=== PATIENT | female | born 1995 | race Caucasian/White ===

== ENCOUNTER 2021-11-20 00:31 | Emergency (ER) | payer OTHER, SELFPAY ==
[2021-11-20 00:44] VITALS: BP 124/78; PULSE 96; RESP 16; TEMP 36.4; O2SAT 100; BMI 27.3
--- NOTE | 2021-11-20 00:55 | W.ED.DIZZY ---
HPI - Dizziness General: Chief Complaint: Dizziness Stated Complaint: Dizzy\SOB\Chest Burning Time Seen by Provider: 11/20/21 00:55 History of Present Illness: HPI Narrative: 26-year-old female comes in today with complaints of nausea and dizziness. Patient reports that she drank a large dose of Delsym and went to bed tonight. Patient reported that a couple hours after going to bed she woke up and went to the bathroom and felt like she was going to pass out or throw up. Patient did report that she drank about half the bottle of Delsym. Patient states she did not drink the medicine to get high or try to harm herself. At this time patient feels better except for some dizziness. Review of Systems General: Reports: 10 or more systems reviewed and unremarkable except in HPI and below Neuro: Reports: dizziness Physical Exam Const: COMMON NORMALS: alert HENMT: COMMON NORMALS: normocephalic HEAD & SCALP: normocephalic Neck/C-Spine: COMMON NORMALS: full ROM Chest: CHEST: Yes other (Mild chest wall tenderness to the left third sternal costal border) Resp: COMMON NORMALS: normal respiratory effort and clear to auscultation bilaterally AUSCULTATION: clear to auscultation bilaterally : COMMON NORMALS: Yes no CVA tenderness BLADDER/KIDNEY EXAM: Yes no CVA tenderness Back/Pelvis: COMMON NORMALS: no CVA tenderness Extremity: COMMON NORMALS: normal to inspection Neuro: SENSORIUM/ORIENTATION: Yes alert Psych: COMMON NORMALS: cooperative Course Vital Signs: Vital signs: Vital Signs Temperature 97.6 F 11/20/21 00:44 Pulse Rate 96 11/20/21 00:44 Respiratory Rate 16 11/20/21 00:44 Blood Pressure 124/78 11/20/21 00:44 Pulse Oximetry 100 11/20/21 00:44 MDM - Dizziness Medical Decision Making Patient came in tonight for concerns of nausea and feeling like she was going to pass out. With discussion with patient it come to realize patient had taken a large dose of Delsym, pvlr-kid-ksozzal cough medicine, patient does report feeling better since arriving to the ER but continues to have some dizziness. Differential diagnosis includes arrhythmia, BPV, vasovagal syndrome, adverse reaction to drug. EKG was normal. I believe patient is taking a large dose of dextromethorphan which is caused her symptoms. I discussed with patient the need to take the medication only as directed. Patient reported understanding agreed to plan. EKG Data EKG 1: EKG interpretation date: 11/20/21 EKG interpretation time: 01:43 Interpretation: EKG shows a sinus rhythm with a regular rate at [address] elevation or ectopy is noted. No prior exam was available for comparison. Discharge Plan Discharge Patient Disposition: Home Clinical Impression: Adverse reaction to drug Qualifiers: Encounter type: initial encounter Qualified Code(s): T50.905A - Adverse effect of unspecified drugs, medicaments and biological substances, initial encounter Condition: Stable Discharge Orders: Discharge ED (Routine); Ordered 11/20/21 Ordered By: Jerome Winchester Discharge Diet: Usual diet Discharge Activity: Increase activity as tolerated Activity Restrictions/Additional Instructions: Delsym is a opiate type medication and in large doses can cause dizziness, nausea, and multitude of other symptoms. Go home and rest. Drink plenty of fluids. Follow-up with primary care as needed. Return to the ER for new concerns. Coding Level of Care Code ED Tool Room Attendant for Sergio Alvarez Exam Problem Focused
--- NOTE | 2021-11-20 01:25 | ECG_ITS ---
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 Measurements Intervals [place] Rate: 77 P: 28 CO: 124 QRS: 76 QRSD: 94 T: 10 QT: 367 QTc: 418 Interpretive Statements SINUS RHYTHM No previous ECG available for comparison Electronically Signed On 11-20-2021 16:01:11 TRAVEL JOURNALIST by Alo Clarke M.D. [id number]
[2021-11-20 01:51] VITALS: BP 124/78; PULSE 96; RESP 16; TEMP 36.4; O2SAT 100
[2021-11-20 02:12] VITALS: BP 124/78; PULSE 96; RESP 16; TEMP 36.4; O2SAT 100
== END 2021-11-20 02:12 | disposition home or self-care (01) ==
PROVIDERS: Emergency Provider Nurse Practitioner Family
DX: T88.7XXA Unspecified adverse effect of drug or medicament, initial encounter (principal); T48.3X5A Adverse effect of antitussives, initial encounter
CPT/HCPCS: 93005; 99282

== ENCOUNTER 2022-07-10 11:38 | Outpatient (CLI) | payer OTHER, SELFPAY | END 2022-07-10 11:39 | disposition home or self-care (01) | LOC: LAB 11:41 | PROVIDERS: Visit Provider Family Medicine | DX: Z36.89 Encounter for other specified antenatal screening (principal); Z3A.01 Less than 8 weeks gestation of pregnancy | CPT/HCPCS: 84702 ==

== ENCOUNTER 2022-08-13 13:59 | Outpatient (CLI) | payer OTHER, SELFPAY ==
--- NOTE | 2022-08-13 | USCV_ITS ---
Mariangel Jaeger Age: 26 Gender: F : 1995 Exam Date: 08/13/2022 14:58 Ordering Phys: Jose Martin Agudelo MD Technologist: Marcio Mcrae Exam Location: [facility] – [place] Indication: Pulmonic valve disorder BP: 120 / 82 HR: 79 Rhythm: Sinus Technical Quality: Adequate MEASUREMENTS (Male / Female) Normal Values 2D ECHO LV Diastolic Diameter PLAX 4.1 cm 4.2 - 5.9 / 3.9 - 5.3 cm LV Systolic Diameter PLAX 2.4 cm IVS Diastolic Thickness 0.6 cm 0.6 - 1.0 / 0.6 - 0.9 cm IVS Systolic Thickness 0.8 cm LVPW Diastolic Thickness 0.8 cm 0.6 - 1.0 / 0.6 - 0.9 cm LVPW Systolic Thickness 1.2 cm LVOT Diameter 2.0 cm LV Ejection Fraction 2D Teich 73.0 % LV Ejection Fraction MOD 2C 72.1 % LV Ejection Fraction 2C AL 73.5 % LA Diameter 3.1 cm LA Width 3.1 cm LA Height 3.5 cm RA Width 2.7 cm RA Height 4.0 cm Aorta at Sinotubular Diameter 1.7 cm IVC Diameter 1.2 cm M-MODE Aortic Annulus Diameter 2.1 cm LA Ao Ratio MM 1.5 MV E Point Septal Separation 0.3 cm DOPPLER AV Peak Velocity 129.7 cm/s LVOT Peak Velocity 131.0 cm/s AV Area Cont Eq vti 2.8 cm squared AV Area Cont Eq pk 3.2 cm squared MV Peak Velocity 139.0 cm/s MV Area PHT 7.1 cm squared Mitral E to A Ratio 1.6 MV E' Velocity 60.5 cm/s Mitral E to MV E' Ratio 4.8 Mitral E to LV E' Lateral Ratio 4.2 Mitral E to LV E' Septal Ratio 5.5 TR Peak Velocity 220.3 cm/s TR Peak Gradient 19.4 mmHg TR Mean Velocity 157.8 cm/s TR Mean Gradient 10.4 mmHg TR Velocity Time Integral 36.8 cm Right Atrial Pressure 3.0 mmHg Pulmonary Artery Systolic Pressu 22.4 mmHg PV Peak Velocity 111.0 cm/s RV Acceleration Time 0.2 s RV Ejection Time 0.3 s RV AcT/ET 0.5 FINDINGS Left Ventricle Normal left ventricular size and systolic function, EF 66 %. No regional wall motion abnormalities. Right Ventricle Normal right ventricular size and systolic function. Right Atrium The right atrium is normal in size. Left Atrium The left atrium is normal in size. Mitral Valve No gross abnormalities noted Aortic Valve No gross abnormalities noted Tricuspid Valve Trace to mild tricuspid valve regurgitation. Estimated pulmonary artery peak systolic pressure 22 mmHg Pulmonic Valve Trace pulmonary valve regurgitation. The main pulmonary artery appears to be of normal size. The peak velocity across the pulmonic valve was 1.8 m/s with a peak gradient of 13 and a mean gradient of 5 mmHg Pericardium No pericardial effusion. Aorta Normal aortic annulus size. IVC The inferior vena cava appears normal. CONCLUSIONS Normal left ventricular size and systolic function, EF 66 %. No regional wall motion abnormalities. Trace to mild tricuspid valve regurgitation. Estimated pulmonary artery peak systolic pressure 22 mmHg. Trace pulmonary valve regurgitation. The main pulmonary artery appears to be of normal size. Features of mild pulmonary valve stenosis (the peak velocity across the pulmonic valve was 1.8 m/s with a peak gradient of 13 and a mean gradient of 5 mmHg. ) Normal RV size ejection fraction. No similar previous studies are available for comparison Dr Paul Perez MD [facility] (Electronically Signed) Final Date: 14 August 2022 08:59 S
== END 2022-08-13 14:00 | disposition home or self-care (01) ==
PROVIDERS: PCP Family Medicine; Visit Provider Family Medicine
DX: I37.2 Nonrheumatic pulmonary valve stenosis with insufficiency (principal)
CPT/HCPCS: 93306

== ENCOUNTER 2023-04-07 12:07 | Outpatient (CLI) | payer OTHER, SELFPAY ==
[2023-04-07 12:24] VITALS: BP 116/67; PULSE 73; TEMP 35.9
[2023-04-07 12:28] VITALS: RESP 16
[2023-04-07 12:29] VITALS: BMI 32.4
[2023-04-07 12:54] VITALS: BP 100/55; PULSE 73
[2023-04-07 13:00] VITALS: BP 100/55; PULSE 73
== END 2023-04-07 13:00 | disposition home or self-care (01) ==
LOC: OPOB 12:13 → OBGYN 12:13
PROVIDERS: PCP Family Medicine; Visit Provider Family Medicine
DX: O36.8190 Decreased fetal movements, unspecified trimester, not applicable or unspecified (principal); Z3A.00 Weeks of gestation of pregnancy not specified
CPT/HCPCS: 59025; 99211

== ENCOUNTER 2023-05-08 19:57 | Outpatient (CLI) | payer OTHER, SELFPAY ==
[2023-05-08 20:00] VITALS: BMI 31.1
[2023-05-08 20:10] VITALS: BP 108/55; PULSE 86; TEMP 35.8
[2023-05-08 20:16] VITALS: RESP 17; TEMP 36.4
[2023-05-08 20:40] VITALS: BP 108/55; PULSE 83; RESP 17; TEMP 36.4
[2023-05-08 20:53] LABS: Nitrazine Paper, PH Negative
== END 2023-05-08 20:41 | disposition home or self-care (01) ==
LOC: OPOB 19:58 → OBGYN 19:59
PROVIDERS: PCP Family Medicine; Visit Provider Family Medicine
DX: O26.899 Other specified pregnancy related conditions, unspecified trimester (principal); N89.8 Other specified noninflammatory disorders of vagina; Z3A.00 Weeks of gestation of pregnancy not specified
CPT/HCPCS: 59025; 83986; 99211

== ENCOUNTER 2023-06-01 18:58 | Inpatient (IN) | payer OTHER, SELFPAY ==
[2023-06-01] VITALS (14 sets, daily range): BP systolic 103–127; BP diastolic 52–83; PULSE 71–85; RESP 15; TEMP 36.1–36.6; BMI 31.2
[2023-06-01] MEDS: ampicillin 2,000 MG in sodium chloride 0.9% (plus) 50 ML 100 MG IV (20:01)
[2023-06-01] MEDS: dextrose 5%-lactated ringers 1,000 ML 125 ML IV (20:01)
[2023-06-01 20:03] LABS: Basophils # 0.1 10^3/uL (0.0-0.1); Basophils % 0.7 %; Eosinophils # 0.1 10^3/uL (0.0-0.8); Eosinophils % 0.6 %; Hematocrit 34.6 % (36-47); Lymphocytes # 2.3 10^3/uL (0.8-4.8); Lymphocytes % 27.3 %; Mean Corpuscular HGB Conc 33.2 g/dL (30-55); Mean Corpuscular Hemoglobin 29.7 pg (27-33); Mean Corpuscular Volume 89.4 fl (85-98); Mean Platelet Volume 9.5 fL (7.4-10.4); Monocytes # 0.5 10^3/uL (0.2-0.9); Monocytes % 5.7 %; Neutrophils # 5.38 10^3/uL (1.8-7.7); Neutrophils % 65.2 %; Nucleated Red Blood Cells % 0 %; Platelet Count 137 10^3/cmm (157-399); Red Blood Count 3.87 10^6/uL (3.85-5.65); Red Cell Distribution Width 15.8 % (12.1-15.1); White Blood Count 8.25 10^3/uL (3.29-11.43)
[2023-06-01] MEDS: miSOPROStol 100 mcg tablet 25 MCG VAGINAL (20:09)
[2023-06-02] VITALS (87 sets, daily range): BP systolic 96–173; BP diastolic 52–94; PULSE 65–171; RESP 15–17; TEMP 36.6–36.8; O2SAT 89–100
[2023-06-02] MEDS: miSOPROStol 100 mcg tablet 25 MCG VAGINAL (00:01)
[2023-06-02] MEDS: ampicillin 1,000 MG in sodium chloride 0.9% (plus) 50 ML 100 MG IV ×5 (04:17→16:39)
--- NOTE | 2023-06-02 07:30 | PM.OPHPUD ---
Labor & Delivery H&P Update Date of Procedure: June 02, 2023 Date H&P Performed: 05/26/23 Admission Diagnosis: 27-year-old 1 at 41 weeks estimated gestational age presenting for induction. Planned procedure: Vaginal delivery Other information: The patient is an otherwise healthy 27-year-old female who presented to the hospital for induction due to postdates. Her has been unremarkable otherwise. Her labs are as follows. Her blood type is a positive. Her antibody screen was negative. She is GBS positive. She is rubella immune. The remainder of her infectious disease profile is within normal limits. Her drug screen is negative. Related Problem List Diagnoses (1) 41 weeks gestation of : A&P Assessment and plan (1) 41 weeks gestation of : We will initiate induction with Cytotec. We will augment labor as indicated depending on her response to the Cytotec. She will be placed on GBS protocol. Status: Acute
[2023-06-02] MEDS: miSOPROStol 100 mcg tablet 25 MCG SUBLINGUAL (08:21)
[2023-06-02] MEDS: lactated ringers 1,000 ML 999 ML IV ×2 (10:50→12:03)
[2023-06-02] MEDS: ROPivacaine syringe 100 MG/50 ML SYRINGE 10 MG EPIDURAL ×2 (11:56→16:40)
--- NOTE | 2023-06-02 12:24 | ANES.PREANE2 ---
Pre-Anesthetic Assessment Height/Weight: Height 1.57 m Weight 77.564 kg Temp Pulse Resp BP Pulse Ox O2 Del Method 97.0 F L 70 15 115/64 100 Room Air 06/01/23 23:21 06/02/23 12:21 06/01/23 19:38 06/02/23 12:21 06/02/23 12:20 06/01/23 21:44 Familial anesthetic complications: none Was Beta Maryellen taken within 24 hours: N/A Was Clonidine taken within 24 hours: N/A Social No alcohol and No tobacco Exam alert, oriented x 3, clear to auscultation bilaterally and regular rate & rhythm Airway Submandibular: within normal limits Cervical ROM: within normal limits Mallampati: Class II Dentition: full Anesthetic Plan ASA status: 2 Anesthesia: Regional (specify below) (Labor epidural) Medications/Allergies Home Medications Medication Instructions Recorded Confirmed Last Taken Type prenat.vits,tiffanie,drz-znql-bczrn 1 tab PO DAILY 04/07/23 06/01/23 06/01/23 History Colace 100 mg PO 1XD PRN Stool Softener 06/01/23 06/01/23 05/31/23 History Allergies Allergy/AdvReac Type Severity Reaction Status Date / Time No Known Allergies Allergy Verified 06/01/23 21:51 Current Medications Generic Name Dose Route Start Last Admin Trade Name Freq PRN Reason Stop Dose Admin Dextrose/Lactated Ringer's 1,000 mls @ 125 mls/hr 06/01/23 19:45 06/02/23 10:50 Dextrose 5%-Lactated Ringers IV 0 mls/hr .Q8H JELANI Infusion Ampicillin Sodium 1,000 mg/ 50 mls @ 100 mls/hr 06/01/23 23:45 06/02/23 12:02 Sodium Chloride IV 100 mls/hr Q4H JELANI Administration Protocol Lactated Ringer's 1,000 mls @ 999 mls/hr 06/02/23 10:25 06/02/23 12:03 Lactated Ringers IV 999 mls/hr .Q1H1M PRN Administration See label comments Ropivacaine 100 mg in 50 mls @ 10 mls/hr 06/02/23 10:25 06/02/23 11:56 Naropin Syringe EPIDURAL 10 mls/hr .Q5H PRN Administration LABOR PAIN PFSH Anesthesia Female Reproductive History : 1 Data Anesthesia 06/01/23 19:30 Short CBC 06/01/23 Range/Units 19:30 WBC 8.25 (3.29-11.43) 10^3/uL Hgb 11.50 (11.27-16.99) g/dL Hct 34.6 L (36-47) % MCV 89.4 (85-98) fl Plt Count 137 L (157-399) 10^3/cmm Neut % (Auto) 65.2 % Neut # (Auto) 5.38 (1.8-7.7) 10^3/uL Cardiac Studies: Echocardiogram Ultrasound 08/13/22 Anesthesia Procedures Epidural Time Out Performed: Yes Consents Signed: Procedure Consent Consent: requested by attending/covering physician, from patient, risks and benefits reviewed and patient agrees to proceed Lumbar Level: L3-L4 Epidural position: sitting Epidural procedure: sterile prep of area, 1% lidocaine to numb the area, 18 g needle, neg for paresthesia, test dose given, 1.5% xylocaine 1:200k epi, 0.2% Ropivacaine bolus ml (5mls), placed PCEA, no systemic response, sterile dressing applied and 0.2% Ropiavacaine @ mls/hr (10) Additional Comments: JOE at 5cm, cath at 10cm
[2023-06-02] MEDS: dextrose 5%-lactated ringers 1,000 ML 125 ML IV (16:39)
[2023-06-02] MEDS: oxytocin 30 UNIT/500 ML BAG 500 UNIT IV (17:30)
--- NOTE | 2023-06-02 17:43 | PM.DELIVERY ---
Delivery Note: Date of delivery: June 02, 2023 Pre-delivery diagnoses: 27-year-old 1 at 41 weeks estimated gestational age presenting for induction due to postdates Post-delivery diagnoses: Status post vacuum-assisted vaginal delivery Procedure: Vacuum-assisted vaginal delivery Delivering Physician: Jose Martin Agudelo Estimated blood loss (mL): 150 Pre-Delivery Course: The patient presented to the hospital for induction. She was given Cytotec 25 mcg x 3. An epidural was placed. An amniotomy was performed. She progressed to complete without difficulty. The mother was GBS positive and began receiving ampicillin just after admission to the hospital. She remained on GBS protocol and received multiple doses prior to delivery. Delivery: DELIVERY: The patient progressed to complete without difficulty. While she was pushing, her heart rate began to dip down below 100 and after the last contraction, her heart rate persisted in the 70s and 80s. As result I assisted to delivery of the baby with a vacuum. There was 1 pop-off that occurred prior to being fully deployed with minimal suction. With 1 push she was able to deliver the baby. The vacuum was on the baby's head for less than 30 seconds. She delivered a female with a weight of 7 pounds 2 ounces with Apgars of 8, 9. The baby was delivered from the KD position and placed on the mother's abdomen. The cord was then clamped and cut. There was a nuchal cord x1 which was reduced shortly after the delivery of the head.. There was no meconium. The placenta and 3 vessel cord were delivered intact shortly thereafter. The perineum and vaginal vault were carefully examined. A first-degree posterior midline was noted. It was repaired with 3-0 Vicryl. Both the mother and the baby were in stable condition. Post-Delivery Status: Good A&P Assessment and plan (1) Vacuum-assisted vaginal delivery: I anticipate routine care Coding Level of Care Code Acute Code for Chg Fwd Diagnoses Vacuum-assisted vaginal delivery Z37.9
[2023-06-02] MEDS: benzocaine-menthol 78 gm Canister 1 SPRAY TOPICAL (21:03)
[2023-06-02] MEDS: lanolin oint 7 gm 1 APPLIC TOPICAL (21:03)
[2023-06-02] MEDS: ibuprofen 800 mg tablet PO (21:03)
[2023-06-02] MEDS: docusate sodium 100 mg Capsule PO (21:04)
[2023-06-03 01:25] VITALS: BP 107/64; PULSE 85; RESP 14; TEMP 36.6; TEMP 36.7
[2023-06-03 03:25] VITALS: BP 122/76; PULSE 74; RESP 15; TEMP 36.6; TEMP 36.7
[2023-06-03 06:28] LABS: Hematocrit 31.8 % (36-47); Mean Corpuscular HGB Conc 32.7 g/dL (30-55); Mean Corpuscular Hemoglobin 30.1 pg (27-33); Mean Corpuscular Volume 92.2 fl (85-98); Mean Platelet Volume 10.4 fL (7.4-10.4); Platelet Count 123 10^3/cmm (157-399); Red Blood Count 3.45 10^6/uL (3.85-5.65); White Blood Count 10.23 10^3/uL (3.29-11.43)
--- NOTE | 2023-06-03 07:49 | PM.OBGYDC ---
Discharge Providers CONSULTING SERVICES MANAGER Date of Admission: 06/01/23 18:58 Date of Discharge: 06/03/23 Attending Provider at Admission: Jose Martin Agudelo MD Attending Provider at Discharge: Jose Martin Agudelo MD Primary Care Provider: Jose Martin Agudelo MD Diagnoses at Discharge Discharge Diagnosis (1) Vacuum-assisted vaginal delivery: Status: Acute Reason for Visit Reason for Visit: INDUCTION Hospital Course Hospital Course The patient presented to the hospital at 41 weeks estimated gestational age for induction. Her induction was relatively unremarkable. She received Cytotec 25 mcg x 3. An amniotomy was performed about 10 hours prior to delivery. An epidural was placed. She progressed to complete and was allowed to labor down for about an hour. As she was pushing, the baby had a period just before delivery where the heart tones were trending in the 70s and 80s. I briefly applied the vacuum to help with this delivery of the baby. She had a first-degree tear. There were no complications. Her course was also unremarkable. Her bleeding was within normal limits. She breast-fed well. Her pain was well controlled. There were no concerns. Information Peripartum Data: Infant Delivery Method: Vaginal Physical Exam Narrative: The patient is alert. She appears comfortable. Her heart has a regular rate and rhythm with no murmurs appreciated. Lungs are clear to auscultation bilaterally. Her fundus is firm and below the umbilicus. Urinary Catheter Management: Hernandez: Cath Placed During This Visit: yes, but has since been removed by the nurse Reason for Continuing Indwelling Catheter: Decision to DC Catheter Urinary Catheter Date of Insertion: 06/02/23 Urinary Catheter Time of Insertion: 12:28 Date Urinary Catheter Removed: 06/02/23 Time Urinary Catheter Discontinued: 16:46 Discharge Data Studies Completed and Pending Laboratory Results WBC 10.23 10^3/uL (3.29-11.43) 06/03/23 05:34 RBC 3.45 10^6/uL (3.85-5.65) L 06/03/23 05:34 Hgb 10.40 g/dL (11.27-16.99) L 06/03/23 05:34 Hct 31.8 % (36-47) L 06/03/23 05:34 MCV 92.2 fl (85-98) 06/03/23 05:34 MCH 30.1 pg (27-33) 06/03/23 05:34 MCHC 32.7 g/dL (30-55) 06/03/23 05:34 RDW 16.0 % (12.1-15.1) H 06/03/23 05:34 Plt Count 123 10^3/cmm (157-399) L 06/03/23 05:34 MPV 10.4 fL (7.4-10.4) 06/03/23 05:34 Neut % (Auto) 65.2 % 06/01/23 19:30 Lymph % (Auto) 27.3 % 06/01/23 19:30 Heard % (Auto) 5.7 % 06/01/23 19:30 Eos % (Auto) 0.6 % 06/01/23 19:30 Baso % (Auto) 0.7 % 06/01/23 19:30 Neut # (Auto) 5.38 10^3/uL (1.8-7.7) 06/01/23 19:30 Lymph # (Auto) 2.3 10^3/uL (0.8-4.8) 06/01/23 19:30 Heard # (Auto) 0.5 10^3/uL (0.2-0.9) 06/01/23 19:30 Eos # (Auto) 0.1 10^3/uL (0.0-0.8) 06/01/23 19:30 Baso # (Auto) 0.1 10^3/uL (0.0-0.1) 06/01/23 19:30 Nucleated RBC % (auto) 0 % 06/01/23 19:30 Nucleated RBCs # 0.0 /100WBC 06/01/23 19:30 Vitals Last Vital Signs Temp 98.0 F 06/03/23 03:25 Pulse 74 06/03/23 03:25 Resp 15 06/03/23 03:25 BP 122/76 06/03/23 03:25 Pulse Ox 100 06/02/23 12:30 O2 Del Method Room Air 06/01/23 21:44 Discharge Plan Discharge Patient Disposition: Home Condition: Stable Prescriptions: New ibuprofen 800 mg Tablet 800 mg PO TID Qty: 45 0RF Continued Colace 50 mg capsule 100 mg PO 1XD PRN (Reason: Stool Softener) prenat.vits,tiffanie,kjb-blbv-wegtl Tablet 1 tab PO DAILY Discharge Orders: Discharge Order (Routine); Ordered 06/03/23 Ordered By: Jose Martin Agudelo Referrals: Jose Martin Agudelo MD [Primary Care Provider] - 6 Weeks Discharge Diet: Usual diet Discharge Activity: Limit activity as instructed Patient Instructions: Hypertension During (DC), Opioid Safety, OB Undelivered Discharge Discharge Attestations CONSULTING SERVICES MANAGER Time Spent in Discharge Care*: less than 30 min Coding Level of Care Code Acute Code for Chg Fwd Diagnoses Vacuum-assisted vaginal delivery Z37.9
[2023-06-03] MEDS: prenatal vitamin Capsule 1 CAP PO (09:25)
[2023-06-03] MEDS: ibuprofen 800 mg tablet PO (09:25)
[2023-06-03] MEDS: docusate sodium 100 mg Capsule PO (09:25)
[2023-06-03 09:32] VITALS: BP 107/70; PULSE 83; RESP 16; TEMP 36.5; O2SAT 98
--- NOTE | 2023-06-03 13:17 | ANE.PACU2 ---
Inpatient post-anesthesia follow up: Airway intact: Yes Vital signs: Temperature 97.7 F Pulse Rate 83 Respiratory Rate 16 Blood Pressure 107/70 Pulse Oximetry 98 Oxygen Delivery Me thod Room Air Oxygen Flow Rate Fraction of Inspir ed Oxygen Hydration adequate: Yes Nausea and vomiting: No Pain level: 2 Mental status: Baseline
[2023-06-03 16:35] VITALS: BP 109/64; PULSE 85; RESP 16; TEMP 36.8; O2SAT 98
[2023-06-03 20:40] VITALS: BP 109/71; PULSE 84; RESP 16; TEMP 36.7; O2SAT 98
== END 2023-06-03 20:50 | disposition home or self-care (01) | DRG 807 ==
LOC: OPOB 18:58 → OBGYN 18:58
PROVIDERS: Absent Provider Family Medicine; Admitting Provider Family Medicine; PCP Family Medicine; Visit Provider Family Medicine
DX: O48.0 Post-term pregnancy (principal); Z37.0 Single live birth; O75.89 Other specified complications of labor and delivery; Z3A.41 41 weeks gestation of pregnancy; O99.824 Streptococcus B carrier state complicating childbirth; O69.81X0 Labor and delivery complicated by cord around neck, without compression, not applicable or unspecified; O70.0 First degree perineal laceration during delivery
CPT/HCPCS: 36415; 51702; 59025; 59409; 85025; 85027; 98960; J0290; J2590; J2795; J7120; J7121

== ENCOUNTER 2024-10-14 04:09 | Inpatient (IN) | payer OTHER, MEDICAID, SELFPAY ==
[2024-10-14] VITALS (28 sets, daily range): BP systolic 96–139; BP diastolic 56–78; PULSE 60–98; RESP 16–17; TEMP 36.6–36.8; O2SAT 82–100; BMI 32.7
[2024-10-14 03:48] LABS: Basophils # 0.1 10^3/uL (0.0-0.1); Basophils % 0.5 %; Eosinophils # 0.1 10^3/uL (0.0-0.8); Eosinophils % 0.5 %; Hematocrit 38.4 % (36-47); Lymphocytes # 2.1 10^3/uL (0.8-4.8); Lymphocytes % 20.3 %; Mean Corpuscular HGB Conc 34.1 g/dL (30-55); Mean Corpuscular Hemoglobin 30.9 pg (27-33); Mean Corpuscular Volume 90.6 fl (85-98); Mean Platelet Volume 9.9 fL (7.4-10.4); Monocytes # 0.5 10^3/uL (0.2-0.9); Neutrophils # 7.58 10^3/uL (1.8-7.7); Neutrophils % 73.3 %; Nucleated Red Blood Cells % 0 %; Platelet Count 133 10^3/cmm (157-399); Red Blood Count 4.24 10^6/uL (3.85-5.65); Red Cell Distribution Width 14.4 % (12.1-15.1); White Blood Count 10.34 10^3/uL (3.29-11.43)
[2024-10-14] MEDS: ampicillin 2,000 MG in sodium chloride 0.9% (plus) 50 ML 100 MG IV (04:00)
[2024-10-14] MEDS: sodium chloride 0.9% 1,000 ML 999 ML IV (04:45)
--- NOTE | 2024-10-14 05:38 | P.ANESASSM_ITS ---
Pre-Anesthetic Assessment Height/Weight: Height 1.52 m Weight 75.977 kg Pulse BP Pulse Ox 73 120/66 100 10/14/24 05:35 10/14/24 05:35 10/14/24 05:26 Preop Diagnosis: active labor labor epidural Familial anesthetic complications: none Was Beta Maryellen taken within 24 hours: N/A Was Clonidine taken within 24 hours: N/A Last intake: 2100 10/13/24 Social No alcohol and No tobacco Exam alert, oriented x 3, clear to auscultation bilaterally and regular rate & rhythm Airway Submandibular: within normal limits Cervical ROM: within normal limits Mallampati: Class I Dentition: full Pulmonary None reported CV/HEM Murmur idiopathic thrombocytopenia platelets stable at this time 133,000 None reported Hepatic None reported GI Gastroesophageal Reflux Disease Metabolic None reported Musc/skel None reported Neuropsych None reported Medications/Allergies Home Medications Medication Instructions Recorded Confirmed Last Taken Type prenat.vits,tiffanie,csy-gjek-tnlxl 1 tab PO DAILY 04/07/23 06/01/23 06/01/23 History Colace 100 mg PO 1XD PRN Stool Softener 06/01/23 06/01/23 05/31/23 History ibuprofen 800 mg tablet 800 mg PO TID #45 tabs 06/03/23 Unknown Rx Allergies Allergy/AdvReac Type Severity Reaction Status Date / Time No Known Allergies Allergy Verified 06/01/23 21:51 Current Medications Generic Name Dose Route Start Last Admin Trade Name Freq PRN Reason Stop Dose Admin Sodium Chloride 1,000 mls @ 999 mls/hr 10/14/24 04:14 10/14/24 04:45 Sodium Chloride 0.9% IV 999 mls/hr .Q1H1M PRN Administration See label comments PFSH Anesthesia Female Reproductive History : 2 Data Anesthesia 10/14/24 03:40 Short CBC 10/14/24 Range/Units 03:40 WBC 10.34 (3.29-11.43) 10^3/uL Hgb 13.10 (11.27-16.99) g/dL Hct 38.4 (36-47) % MCV 90.6 (85-98) fl Plt Count 133 L (157-399) 10^3/cmm Neut % (Auto) 73.3 % Neut # (Auto) 7.58 (1.8-7.7) 10^3/uL Blood Bank 10/14/24 03:40 Blood Type A Positive Rho(D) Type Rh positive Antibody Screen Negative Cardiac Studies: 2 Echocardiogram Ultrasound 08/13/22
--- NOTE | 2024-10-14 05:45 | P.ANES_ITS ---
Anesthesia Procedures Procedure/Date: 10/14/24 Epidural: Time Out Performed: Yes Consents Signed: Procedure Consent Consent: requested by attending/covering physician, from patient, risks and benefits reviewed and patient agrees to proceed Lumbar Level: L3-L4 Epidural position: sitting Epidural procedure: sterile prep of area, 1% lidocaine to numb the area, negative for paresthesia passed, test dose given, 1.5% xylocaine 1:200k epi (5ml), placed PCEA (10 ml/hr), no systemic response, sterile dressing applied, L.U.D. no apparent complications and 0.2% Ropiavacaine @ mls/hr (10 ml) Additional Comments: JOE at 5.5 cm catheter threaded 12cm test dose given with no systemic response. Remaining lidocaine in kit given with 100 mcg Fentanyl via epidural, patient reported adequate pain control sterile dressing applied and WELDING LEAD BURNER started.
[2024-10-14] MEDS: oxytocin 30 UNIT/500 ML BAG 600 UNIT IV (06:44)
--- NOTE | 2024-10-14 07:43 | PM.OPHPUD ---
Labor & Delivery H&P Update Date of Procedure: October 14, 2024 Date H&P Performed: 10/13/24 Changes to previous documentation: The patient was dilated to 6 cm Admission Diagnosis: 28-year-old 3 para 1-0-1-1 at 40 weeks estimated gestational age presenting in active labor Preop diagnosis: active labor Planned procedure: Spontaneous vaginal delivery Other information: The patient had been in labor for several hours prior to arriving at the hospital. Her membranes were intact. She is found to have consistent contractions. Her had been unremarkable. Her blood type is a positive. Her antibody screen was negative. Her glucose screen was negative. She was GBS positive. She is rubella immune. The remainder of her infectious disease profile was within normal limits. Related Problem List Diagnoses (1) 40 weeks gestation of : (2) Positive GBS test: A&P Assessment and plan (1) 40 weeks gestation of : We will put the patient on GBS protocol. It is likely that she will not make it to a second dose. Status: Acute (2) Positive GBS test: Status: Acute
--- NOTE | 2024-10-14 07:50 | PM.DELIVERY ---
Delivery Note: Date of delivery: October 14, 2024 Pre-delivery diagnoses: 28-year-old 3 para 1-0-0-1 at 40 weeks estimated gestational age Post-delivery diagnoses: Status post spontaneous vaginal delivery Procedure: Spontaneous vaginal delivery Delivering Physician: Jose Martin Agudelo Pre-Delivery Course: The patient arrived at the hospital in active labor. An epidural was placed. An amniotomy was performed. She progressed complete without difficulty. Delivery: DELIVERY: The patient progressed to complete without difficulty. She delivered a male with a weight of 6 pounds 9 ounces with Apgars of 8, 9. The baby was delivered from the KD position and placed on the mother's abdomen. The cord was then clamped and cut about 1 minute after delivery. There was no nuchal cord. There was no meconium. The placenta and 3 vessel cord were delivered intact shortly thereafter. The perineum and vaginal vault were carefully examined. No lacerations were noted. Both the mother and the baby were in stable condition. Post-Delivery Status: Good History History History 3 Term 2 Miscarriages/Ectopic 1 Living Children 2 A&P Assessment and plan (1) Spontaneous vaginal delivery: I anticipate routine care (2) 40 weeks gestation of : (3) Positive GBS test: Coding Level of Care Code Acute Code for Chg Fwd Diagnoses Spontaneous vaginal delivery O80 40 weeks gestation of Z3A.40 Positive GBS test B95.1
[2024-10-14] MEDS: ibuprofen 800 mg tablet PO ×3 (10:15→20:06)
[2024-10-14 20:21] LABS: Hematocrit 32.1 % (36-47); Mean Corpuscular HGB Conc 34.3 g/dL (30-55); Mean Corpuscular Hemoglobin 31.7 pg (27-33); Mean Corpuscular Volume 92.5 fl (85-98); Platelet Count 156 10^3/cmm (157-399); Red Blood Count 3.47 10^6/uL (3.85-5.65); Red Cell Distribution Width 14.6 % (12.1-15.1); White Blood Count 10.28 10^3/uL (3.29-11.43)
--- NOTE | 2024-10-15 08:00 | ANE.PACU2 ---
Inpatient post-anesthesia follow up: Airway intact: Yes Vital signs: Temperature 97.5 F Pulse Rate 80 Respiratory Rate 18 Blood Pressure 112/73 Pulse Oximetry 98 Oxygen Delivery Me thod Room Air Oxygen Flow Rate Fraction of Inspir ed Oxygen Hydration adequate: Yes Nausea and vomiting: No Pain level: 1 Mental status: Baseline Epidural Start/End: Epidural Start Date: 10/14/24 Epidural Start Time: 05:05 Epidural End Date: 10/14/24 Epidural End Time: 09:45
--- NOTE | 2024-10-15 09:26 | P.DS_ITS ---
Discharge Providers FLOOR COVERINGS INSTALLER Date of Admission: 10/14/24 04:09 Date of Discharge: 10/29/24 Attending Provider at Admission: Jose Martin Agudelo MD Attending Provider at Discharge: Jose Martin Agudelo MD Primary Care Provider: Jose Martin Agudelo MD Diagnoses at Discharge Discharge Diagnosis (1) Spontaneous vaginal delivery: Status: Resolved (2) 40 weeks gestation of : Status: Resolved (3) Positive GBS test: Status: Resolved Reason for Visit Reason for Visit: contractions Hospital Course Hospital Course The patient presented to the hospital active labor. An epidural was placed. An amniotomy was performed. She progressed to complete and had an unremarkable vaginal delivery. Her course was also unremarkable. Her bleeding was within normal limits. Her pain was well-controlled. There were no problems. Information Peripartum Data: Delivery Method: Vaginal Physical Exam Narrative: The patient is alert. She appears comfortable. Her heart has a regular rate and rhythm with no murmurs appreciated. Lungs are clear to auscultation bilaterally. Her fundus is firm and below the umbilicus. Urinary Catheter Management: Hernandez: Cath Placed During This Visit: yes, but has since been removed by the nurse Reason for Continuing Indwelling Catheter: Decision to DC Catheter Urinary Catheter Date of Insertion: 10/14/24 Urinary Catheter Time of Insertion: 06:15 Date Urinary Catheter Removed: 10/14/24 Time Urinary Catheter Discontinued: 06:32 History History History 3 Term 2 Miscarriages/Ectopic 1 Living Children 2 Discharge Data Studies Completed and Pending Laboratory Results WBC 10.28 10^3/uL (3.29-11.43) 10/14/24 20:15 RBC 3.47 10^6/uL (3.85-5.65) L 10/14/24 20:15 Hgb 11.00 g/dL (11.27-16.99) L 10/14/24 20:15 Hct 32.1 % (36-47) L 10/14/24 20:15 MCV 92.5 fl (85-98) 10/14/24 20:15 MCH 31.7 pg (27-33) 10/14/24 20:15 MCHC 34.3 g/dL (30-55) 10/14/24 20:15 RDW 14.6 % (12.1-15.1) 10/14/24 20:15 Plt Count 156 10^3/cmm (157-399) L 10/14/24 20:15 MPV 10.0 fL (7.4-10.4) 10/14/24 20:15 Neut % (Auto) 73.3 % 10/14/24 03:40 Lymph % (Auto) 20.3 % 10/14/24 03:40 [place] % (Auto) 5.0 % 10/14/24 03:40 Eos % (Auto) 0.5 % 10/14/24 03:40 Baso % (Auto) 0.5 % 10/14/24 03:40 Neut # (Auto) 7.58 10^3/uL (1.8-7.7) 10/14/24 03:40 Lymph # (Auto) 2.1 10^3/uL (0.8-4.8) 10/14/24 03:40 [place] # (Auto) 0.5 10^3/uL (0.2-0.9) 10/14/24 03:40 Eos # (Auto) 0.1 10^3/uL (0.0-0.8) 10/14/24 03:40 Baso # (Auto) 0.1 10^3/uL (0.0-0.1) 10/14/24 03:40 Nucleated RBC % (auto) 0 % 10/14/24 03:40 Nucleated RBCs # 0.0 /100WBC 10/14/24 03:40 Blood Type A Positive 10/14/24 03:40 Rho(D) Type Rh positive 10/14/24 03:40 Antibody Screen Negative 10/14/24 03:40 Vitals Last Vital Signs Temp 97.9 F 10/14/24 21:34 Pulse 74 10/14/24 21:34 Resp 16 10/14/24 21:34 BP 116/69 10/14/24 21:34 Pulse Ox 99 10/14/24 21:34 O2 Del Method Room Air 10/14/24 21:34 Results Labs OB ([facility]): Obstetrics US 07/18/24 Blood Type A Positive 10/14/24 Antibody Screen Negative 10/14/24 Hct 32.1 % (36-47) L 10/14/24 Hgb 11.00 g/dL (11.27-16.99) L 10/14/24 Rho(D) Type Rh positive 10/14/24 Plt Count 156 10^3/cmm (157-399) L 10/14/24 Discharge Plan Discharge Patient Disposition: Home Condition: Stable Prescriptions: New ibuprofen 800 mg Tablet 800 mg PO TID Qty: 45 0RF Continued escitalopram oxalate [Lexapro] 10 mg Tablet 10 mg PO DAILY Discharge Orders: Discharge Order (Routine); Ordered 10/15/24 Ordered By: Jose Martin Agudelo Referrals: Jose Martin Agudelo MD [Primary Care Provider] - 11/21/24 11:50 am Discharge Diet: Usual diet Discharge Activity: Limit activity as instructed Patient Instructions: Depression (DC), Opioid Safety (DC), Preeclampsia and Eclampsia After Delivery (GEN), Hemorrhage (DC), OB Discharge Report, OB Food/Drug Interaction Guide, OB Care at Home, Opioid Safety, OB Vaginal Deliveries, Abnormal Bleeding Discharge Attestations FLOOR COVERINGS INSTALLER Time Spent in Discharge Care*: less than 30 min Coding Level of Care Code Acute Code for Chg Fwd Diagnoses Spontaneous vaginal delivery O80 40 weeks gestation of Z3A.40 Positive GBS test B95.1
[2024-10-15] MEDS: docusate sodium 100 mg Capsule PO (10:10)
[2024-10-15] MEDS: PRENATAL VIT NO.130/IRON/FOLIC 1 EACH TABLET PO (10:10)
[2024-10-15] MEDS: ibuprofen 800 mg tablet PO ×2 (10:10→14:19)
[2024-10-15 10:21] VITALS: BP 111/72; PULSE 82; RESP 16; TEMP 36.6; O2SAT 99
[2024-10-15 14:25] VITALS: BP 112/73; PULSE 80; RESP 18; TEMP 36.4; O2SAT 98
== END 2024-10-15 14:27 | disposition home or self-care (01) | DRG 806 ==
LOC: OPOB 05:08 → OBGYN 05:08
PROVIDERS: Admitting Provider Family Medicine; PCP Family Medicine; Visit Provider Family Medicine
DX: O99.824 Streptococcus B carrier state complicating childbirth (principal); D69.3 Immune thrombocytopenic purpura; Z37.0 Single live birth; Z3A.40 40 weeks gestation of pregnancy; O75.89 Other specified complications of labor and delivery; R01.1 Cardiac murmur, unspecified; K21.9 Gastro-esophageal reflux disease without esophagitis
CPT/HCPCS: 36415; 51702; 59025; 59409; 85025; 85027; 86850; 86900; 96374; 99211; J0290; J2590; J3010; J7030